=== PATIENT | female | born 1955 | race Hispanic/Latino ===

== ENCOUNTER 2021-02-24 15:43 | Emergency (ER) | payer OTHER ==
[2021-02-24 17:02] LABS: Absolute Lymphocytes (CBC) 2.4 K/uL (0.7-4.9); Basophils % 0.8 % (0-1.3); Hematocrit 40.4 % (36.0-45.0); Lymphocytes % 29.3 % (15.3-44.8); MPV 9.3 fL (7.6-11.3); RBC Red Blood Cell Count 4.56 M/uL (3.86-4.86)
--- NOTE | 2021-02-24 17:06 | RAD REPORT ---
EXAM DESCRIPTION: CT - Head Brain Wo Cont - 02/24/2021 4:55 pm CLINICAL HISTORY: MENTAL STATUS CHANGE COMPARISON: No comparisons TECHNIQUE: All CT scans are performed using dose optimization technique as appropriate and may inclu de automated exposure control or mA/KV adjustment according to patient size. FINDINGS: No intracranial hemorrhage, hydrocephalus or extra-axial fluid collection.No areas of brai n edema or evidence of midline shift. Mild chronic small vessel ischemic changes The paranasal sinuses and mastoids are clear. The calvarium is intact. IMPRESSION: No acute intracranial abnormality.
[2021-02-24 17:08] LABS: Protime INR 1.15
[2021-02-24 17:19] LABS: Urine Blood 1+ (Negative); Urine Glucose Negative (Negative); Urine Protein Negative (Negative); Urine Specific Gravity 1.025 (1.005-1.030); Urine pH 5.5 (5.0-7.0)
[2021-02-24 17:24] LABS: ALT/SGPT 34 U/L (12-78); AST/SGOT 25 U/L (15-37); Albumin 3.5 g/dL (3.4-5.0); Alkaline Phosphatase 102 U/L (45-117); BUN Blood Urea Nitrogen 20 mg/dL (7-18); Bicarbonate 30 mmol/L (21-32); Bilirubin Direct 0.1 mg/dL (0-0.2); Bilirubin Total 0.5 mg/dL (0.2-1.0); Glucose Level 106 mg/dL (74-106); Magnesium 1.8 mg/dL (1.8-2.4); NT PRO-BNP 208 pg/mL (<125); Potassium 3.4 mmol/L (3.5-5.1); Protein, Total 7.5 g/dL (6.4-8.2); Sodium Level 143 mmol/L (136-145); Troponin (Emerg Dept Use Only) < 0.02 ng/mL (0.0-0.045)
--- NOTE | 2021-02-24 17:30 | RAD REPORT ---
EXAM DESCRIPTION: RAD - Chest Single View - 02/24/2021 5:23 pm CLINICAL HISTORY: AMS COMPARISON: No comparisons FINDINGS: Lines: None. Lungs: No evidence of edema or pneumonia. Pleural: No significant pleural effusions or pneumothorax. Cardiac: The heart size is within normal limits. Bones: No acute fractures. Other: IMPRESSION: No acute cardiopulmonary disease.
[2021-02-24 17:43] LABS: Barbiturates NEGATIVE (NEGATIVE); Benzodiazepines POSITIVE (NEGATIVE); Cocaine NEGATIVE (NEGATIVE); METHAMPHETAM NEGATIVE (NEGATIVE); Methadone NEGATIVE (NEGATIVE); Opiates NEGATIVE (NEGATIVE); Phencyclidine NEGATIVE (NEGATIVE); THC Cannibis NEGATIVE (NEGATIVE)
--- NOTE | 2021-02-24 18:52 | ER ---
Nurse's Notes [facility] Name: Vikki Pimentel Age: 65 yrs Sex: Female : 1955 Arrival Date: 02/24/2021 Time: 15:46 Bed 25 Private MD: Adrianna Mariscal Diagnosis: Altered mental status, unspecified Presentation: 02/24 15:51 Chief complaint: Pt's states "she hasn't been making sense since Sunday". Pt aa5 currently A\\T\\O x person, place, and time, denies any complaints. Coronavirus screen: At this time, the client does not indicate any symptoms associated with coronavirus-19. Ebola Screen: No symptoms or risks identified at this time. Initial Sepsis Screen: Does the patient meet any 2 criteria? No. Patient's initial sepsis screen is negative. Does the patient have a suspected source of infection? No. Patient's initial sepsis screen is negative. Risk Assessment: Do you want to hurt yourself or someone else? Patient reports no desire to harm self or others. Onset of symptoms was February 2021. 15:51 Acuity: SHONA 3 aa5 15:51 Method Of Arrival: Ambulatory aa5 Historical: - Allergies: 15:55 No Known Allergies; aa5 - Home Meds: 15:55 alprazolam 0.5 mg oral Tb24 [Active]; amlodipine 5 mg tab once daily [Active]; Restasis aa5 ophthalmic (eye) [Active]; Nitrofurantoin Macrocrystal Oral for as needed [Active]; - PMHx: 15:55 Hypertensive disorder; aa5 - Immunization history:: Client reports receiving the 2nd dose of the Covid vaccine. - Social history:: Smoking status: Patient denies any tobacco usage or history of. Screenin:17 Abuse screen: Denies threats or abuse. Denies injuries from another. Nutritional vg1 screening: No deficits noted. Tuberculosis screening: No symptoms or risk factors identified. Fall Risk No fall in past 12 months (0 pts). No secondary diagnosis (0 pts). IV access (20 points). Ambulatory Aid- None/Bed Rest/Nurse Assist (0 pts). Gait- Normal/Bed Rest/Wheelchair (0 pts) Mental Status- Oriented to own ability (0 pts). Total Sanchez Fall Scale indicates No Risk (0-24 pts). Assessment: 16:14 Reassessment: Pt niece states for about a week pt has been having auditory and visual vg1 hallucinations. States pt has been having 'anxiety' episodes and 'has not seen her act like that in the past'. General: Appears in no apparent distress. comfortable, Behavior is calm, cooperative. Pain: Denies pain. Neuro: Level of Consciousness is awake, alert, obeys commands, Oriented to person, place, time, situation. Cardiovascular: Patient's skin is warm and dry. Respiratory: Airway is patent Respiratory effort is even, unlabored, Denies cough. GI: Patient currently denies diarrhea, nausea, vomiting. : Denies burning with urination, pain urinary frequency. EENT: No signs and/or symptoms were reported regarding the EENT system. Derm: Skin is intact, Skin is pink, warm \\T\\ dry. Musculoskeletal: Circulation, motion, and sensation intact. 17:22 Reassessment: Patient appears in no apparent distress at this time. No changes from vg1 previously documented assessment. Patient and/or family updated on plan of care and expected duration. Pain level reassessed. Patient is alert, oriented x 3, equal unlabored respirations, skin warm/dry/pink. 18:19 Reassessment: Patient appears in no apparent distress at this time. No changes from vg1 previously documented assessment. Patient and/or family updated on plan of care and expected duration. Pain level reassessed. Patient is alert, oriented x 3, equal unlabored respirations, skin warm/dry/pink. 19:31 Reassessment: Patient appears in no apparent distress at this time. No changes from vg1 previously documented assessment. Patient and/or family updated on plan of care and expected duration. Pain level reassessed. Patient is alert, oriented x 3, equal unlabored respirations, skin warm/dry/pink. 21:27 Reassessment: Patient appears in no apparent distress at this time. No changes from vg1 previously documented assessment. Patient and/or family updated on plan of care and expected duration. Pain level reassessed. Patient is alert, oriented x 3, equal unlabored respirations, skin warm/dry/pink. Patient denies pain at this time. Vital Signs: 15:51 BP 148 / 83; Pulse 82; Resp 20 S; Temp 98.0(TE); Pulse Ox 97% on R/A; aa5 15:59 Weight 82.1 kg (M); aa5 16:17 BP 159 / 81; Pulse 84; Resp 18; Pulse Ox 99% ; vg1 17:22 BP 139 / 68; Pulse 77; Resp 20; Pulse Ox 98% ; vg1 18:00 BP 129 / 80; Pulse 74; Resp 20; Pulse Ox 100% ; vg1 18:30 BP 144 / 81; Pulse 71; Resp 16; Pulse Ox 99% ; vg1 19:00 BP 137 / 76; Pulse 68; Resp 20; Pulse Ox 98% ; vg1 20:00 BP 138 / 78; Pulse 70; Resp 15; Pulse Ox 98% ; vg1 21:00 BP 149 / 77; Pulse 71; Resp 20; Pulse Ox 99% ; vg1 ED Course: 15:46 Patient arrived in ED. am2 15:46 Adrianna Mariscal MD is Private Physician. am2 15:47 Arm band placed on. aa5 15:55 Triage completed. aa5 15:59 Floyd Nam PA is PHCP. cp 15:59 Stan Hall MD is Attending Physician. cp 16:04 Amy Nuñez, ELISEO is Primary Nurse. vg1 16:17 Patient has correct armband on for positive identification. Bed in low position. Call vg1 light in reach. Side rails up X 1. Adult w/ patient. 16:35 Inserted saline lock: 20 gauge in left antecubital area, using aseptic technique. Blood vg1 collected. 16:35 Initial lab(s) drawn, by me, sent to lab. First set of blood cultures drawn by me. vg1 16:49 COVID swab sent to lab. vg1 16:50 Second set of blood cultures drawn by me. vg1 16:55 CT Head Brain wo Cont In Process Unspecified. EDMS 17:10 Straight cath inserted, using sterile technique, 16 Fr. Specimen obtained. Returned vg1 steven urine. Patient tolerated well. 17:23 XRAY Chest (1 view) In Process Unspecified. EDMS 19:22 Initiated transfer at [facility] with Juany Boston. Stated she would put in a bed tt3 request and call back with their physician. 19:46 Juany called back and stated that there wasn't a bed available, but could take the tt3 pt in the ER. Call was connected to JENNIFER Rodriguez, pt provider for consultation. 19:59 Juany gave admin approval. The pt is going to [facility]. The accepting tt3 physician is Dr. Cordova. Nurse to call report to . Face sheet, MOT, and covid results faxed to per Juany's request. 20:41 No provider procedures requiring assistance completed. Patient transferred, IV remains vg1 in place. Administered Medications: No medications were administered Outcome: 18:51 ER care complete, transfer ordered by MD. quinteros 20:41 Transferred by ground EMS vg1 20:41 Condition: stable 20:41 Instructed on the need for transfer. 21:28 Patient left the ED. vg1 Signatures: Dispatcher [employer] EDMS Sandra Rosenbaum, RN RN aa5 Floyd Nam PA PA cp Moreno, Amanda am2 Garcia, Victoria, RN RN vg1 Stephen Hobbs tt3
--- NOTE | 2021-02-24 18:52 | EDPHYS ---
Physician Documentation [facility] Name: Vikki Pimentel Age: 65 yrs Sex: Female : 1955 Arrival Date: 02/24/2021 Time: 15:46 Bed 25 Private MD: Adrianna Mariscal ED Physician Stan Hall HPI: 02/24 16:24 This 65 yrs old Female presents to ER via Ambulatory with complaints of cp Altered Mental Status, High Blood Pressure. 16:24 The patient presents with decreased mental status. Onset: The symptoms/episode cp began/occurred 1 week(s) ago. Possible causes: unknown. Associated signs and symptoms: Pertinent positives: elevated blood pressure. 16:25 Patient's baseline: Neuro: orientated to person, time, Motor: no deficits, Ambulation: cp walks without assistance, Speech: normal. Historical: - Allergies: 15:55 No Known Allergies; aa5 - Home Meds: 15:55 alprazolam 0.5 mg oral Tb24 [Active]; amlodipine 5 mg tab once daily [Active]; Restasis aa5 ophthalmic (eye) [Active]; Nitrofurantoin Macrocrystal Oral for as needed [Active]; - PMHx: 15:55 Hypertensive disorder; aa5 - Immunization history:: Client reports receiving the 2nd dose of the Covid vaccine. - Social history:: Smoking status: Patient denies any tobacco usage or history of. ROS: 16:30 Constitutional: Negative for body aches, chills, fever, poor PO intake. cp 16:30 Eyes: Negative for injury, pain, redness, and discharge. cp 16:30 ENT: Negative for ear pain, sore throat, difficulty swallowing, difficulty handling secretions. 16:30 Cardiovascular: Negative for chest pain, edema. 16:30 Respiratory: Negative for cough, shortness of breath, wheezing. 16:30 Abdomen/GI: Negative for abdominal pain, vomiting, diarrhea, constipation. 16:30 : Negative for urinary symptoms. 16:30 Skin: Negative for cellulitis, rash. 16:30 Neuro: Positive for altered mental status, Negative for headache, weakness. Exam: 16:33 Constitutional: The patient appears in no acute distress, alert, awake, cp non-diaphoretic, non-toxic, well developed, well nourished. 16:33 Head/Face: Normocephalic, atraumatic. cp 16:33 Eyes: Periorbital structures: appear normal, Pupils: equal, round, and reactive to light and accomodation, Extraocular movements: intact throughout, Conjunctiva: normal, no exudate, no injection, Sclera: no appreciated abnormality, Lids and lashes: appear normal, bilaterally. 16:33 ENT: External ear(s): are unremarkable, Nose: is normal, Posterior pharynx: Airway: no evidence of obstruction, patent. 16:33 Neck: ROM/movement: is normal, is supple, without pain, no range of motions limitations, no meningismus. 16:33 Chest/axilla: Inspection: normal. 16:33 Cardiovascular: Rate: normal, Rhythm: regular, Edema: is not appreciated, JVD: is not appreciated. 16:33 Respiratory: the patient does not display signs of respiratory distress, Respirations: normal, no use of accessory muscles, no retractions, labored breathing, is not present, Breath sounds: are clear throughout, no decreased breath sounds, no stridor, no wheezing. 16:33 Abdomen/GI: Exam negative for discomfort, distension, guarding, Inspection: abdomen appears normal. 16:33 Neuro: Orientation: to person, time, situation, Mentation: able to follow commands, Motor: moves all fours, strength is normal, Sensation: is normal. 17:20 ECG was reviewed by the Attending Physician. cp Vital Signs: 15:51 BP 148 / 83; Pulse 82; Resp 20 S; Temp 98.0(TE); Pulse Ox 97% on R/A; aa5 15:59 Weight 82.1 kg (M); aa5 16:17 BP 159 / 81; Pulse 84; Resp 18; Pulse Ox 99% ; vg1 17:22 BP 139 / 68; Pulse 77; Resp 20; Pulse Ox 98% ; vg1 18:00 BP 129 / 80; Pulse 74; Resp 20; Pulse Ox 100% ; vg1 18:30 BP 144 / 81; Pulse 71; Resp 16; Pulse Ox 99% ; vg1 19:00 BP 137 / 76; Pulse 68; Resp 20; Pulse Ox 98% ; vg1 20:00 BP 138 / 78; Pulse 70; Resp 15; Pulse Ox 98% ; vg1 21:00 BP 149 / 77; Pulse 71; Resp 20; Pulse Ox 99% ; vg1 MDM: 16:02 Patient medically screened. cp 16:35 Differential Diagnosis: CVA, electrolyte abnormality, alcohol intoxication, cp hypoglycemia, intracranial bleed, pneumonia, sepsis, TIA, UTI, volume depletion. 18:00 Data reviewed: vital signs, nurses notes, lab test result(s), EKG, radiologic studies, cp CT scan, plain films. 18:00 Test interpretation: by ED physician or midlevel provider: ECG, plain radiologic cp studies. Counseling: I had a detailed discussion with the patient and/or guardian regarding: the historical points, exam findings, and any diagnostic results supporting the discharge/admit diagnosis, lab results, radiology results. 20:00 Physician consultation: was contacted at 19:58, regarding regarding transfer, [facility] aldair De La Garza for admission and observation per request from family of patient. Accepting physician will be DR Karthik Cordova. 02/24 16:20 Order name: Basic Metabolic Panel 02/24 16:20 Order name: CBC with Diff 02/24 16:20 Order name: LFT's; Complete Time: 17:44 02/24 17:44 Interpretation: Normal except: GLOB 4.0; A/G 0.9. 02/24 16:20 Order name: Magnesium; Complete Time: 17:44 02/24 17:45 Interpretation: MG 1.8; Reviewed. 02/24 16:20 Order name: NT PRO-BNP; Complete Time: 17:44 02/24 16:20 Order name: PT-INR; Complete Time: 17:44 02/24 16:20 Order name: Troponin (emerg Dept Use Only); Complete Time: 17:44 02/24 16:20 Order name: Procalcitonin; Complete Time: 19:57 02/24 16:20 Order name: Lactate; Complete Time: 17:44 02/24 17:46 Interpretation: Within normal limits: LAC 1.0. 02/24 16:20 Order name: Blood Culture Adult (2) 02/24 16:20 Order name: UDS; Complete Time: 17:44 02/24 17:44 Interpretation: Normal except: BZO POSITIVE. 02/24 16:20 Order name: ETOH Level; Complete Time: 17:44 02/24 16:20 Order name: Basic Metabolic Panel; Complete Time: 17:44 EDMS 02/24 17:44 Interpretation: Normal except: K 3.4; BUN 20; GFR 80. 02/24 16:20 Order name: CT Head Brain wo Cont; Complete Time: 17:44 02/24 17:45 Interpretation: Report reviewed. 02/24 16:20 Order name: XRAY Chest (1 view); Complete Time: 17:44 02/24 17:45 Interpretation: Report reviewed. 02/24 16:20 Order name: EKG; Complete Time: 16:21 cp 02/24 16:20 Order name: Cardiac monitoring; Complete Time: 17:17 02/24 16:20 Order name: EKG - Nurse/Tech; Complete Time: 17:17 02/24 16:20 Order name: IV Saline Lock; Complete Time: 16:48 02/24 16:20 Order name: Labs collected and sent; Complete Time: 16:48 02/24 16:20 Order name: O2 Per Protocol; Complete Time: 16:48 02/24 16:20 Order name: O2 Sat Monitoring; Complete Time: 16:48 02/24 16:20 Order name: Cath; Complete Time: 17:17 02/24 16:20 Order name: CBC with Automated Diff; Complete Time: 17:44 EDMS 02/24 17:46 Interpretation: Within normal limits. 02/24 17:19 Order name: Urine Dipstick-Ancillary; Complete Time: 17:44 EDMS 02/24 17:45 Interpretation: Normal except: UBLD 1+. 02/24 17:40 Order name: SARS-COV-2 RT PCR; Complete Time: 19:57 EDMS EC:20 Rate is 76 beats/min. Rhythm is regular. [place] interval is normal. QRS interval is normal. cp QT interval is normal. T waves are Inverted in lead aVR. Interpreted by me. Reviewed by me. Administered Medications: No medications were administered Disposition: 02/25 19:05 Co-signature as Attending Physician, Stan Hall MD I agree with the assessment and rn plan of care. Attestation: The patient's history, exam findings, diagnostics, and a summary of any interventions or procedures was reviewed in detail with Floyd RODRIGUEZ. Disposition Summary: 02/24/21 18:51 Transfer Ordered Transfer Location: Other Acute Care Facility cp Reason: Higher level of care cp Condition: Stable cp Problem: new cp Symptoms: are unchanged cp Accepting Physician: DR Karthik Cordova(02/24/21 21:28) vg1 Diagnosis - Altered mental status, unspecified cp Forms: - Medication Reconciliation Form cp - SBAR form cp Signatures: Dispatcher [employer] EDMS Stan Hall MD MD rn Sandra Rosenbaum RN RN aa5 Floyd Nam PA PA Amy Coffey RN RN vg1 Corrections: (The following items were deleted from the chart) 02/24 17:40 16:21 CORONAVIRUS+MR.LAB.BRZ ordered. EDKS EDMS 19:59 18:51 Doctor cp cp 21:28 19:59 DR Karthik Cordova cp vg1
[2021-02-24 21:47] VITALS: TEMP 98
[2021-02-24 21:56] VITALS: BP 149/77; O2SAT 99
--- NOTE | 2021-02-28 18:35 | EKG ---
Test Date: 2021-02-24 Test Time: 17:14:17 Traffic Investigator: FRANCIE MEASUREMENT RESULTS: Intervals: Rate: 76 NC: 162 QRSD: 82 QT: 376 QTc: 423 Superior: P: 57 NC: 162 QRS: 27 T: 44 INTERPRETIVE STATEMENTS: Normal sinus rhythm Possible Left atrial enlargement Borderline ECG No previous ECG available for comparison Electronically Signed On 02-28-21 18:24:46 [employer]LET[employer] WORK[employer] by Taras Pham
--- OUTSIDE RECORDS SUMMARY | 2021-03-05 11:43 | XMS REPORT | Continuity of Care Document ---
:1955 Author Organization [facility] t Address [address] [place] [address] Care Team Providers Name Role Phone Darek Maxwell Attending Clinician Unavailable Darek Maxwell Admitting Clinician Unavailable Adrianna Mariscal Admitting Clinician Unavailable Payers Payer Name Policy Type Policy Number Effective Date Expiration Date S ource Problems This patient has no known problems. Allergies, Adverse Reactions, Alerts Allergy Allergy Status Severity Reaction(s) Onset Inactive Treating Comm ents Source Name Type Date Date Clinician No Known DA Active U 2020-04 [facility] Allergie 04-26 Clear s 00:00: [place] 00 [facility] Medications Ordered Filled Start Stop Current Ordering Indication Dosage Frequency Signature Comments Components Source Medication Medication Date Date Medication? Clinician (SIG) Name Name Amlodipine Amlodipine Yes Adrianna Mariscal [address] [facility] Besylate Besylate 8-19 [facility] Procedures This patient has no known procedures. Encounters Start End Encounter Admission Attending Care Care Encounter Source Date/Time Date/Time Type Type Clinicians Facility Department ID 2021-02-24 2021-02-25 Inpatient EM LAKSHMI Maxwell INTE.02 [id number] [facility] 22:23:00 22:00:00 Darek [id number] [facility] 2021-02-24 2021-02-25 Inpatient EM LAKSHMI Maxwell INTE.02 [id number] [facility] 22:23:00 22:00:00 Nkoli 13 [facility] 2021-02-25 2021-02-25 Outpatient JONATHAN Maxwell [id number] [facility] 08:39:[facility] 08:39:00 Nkoli [id number] [facility] 2021-02-03 2021-02-03 Outpatient [facility] [id number] [facility] 2020-04-08 2020-04-08 Outpatient [facility] [id number] [facility] 2020-03-30 2020-03-30 Outpatient [facility] [id number] [facility] 2019-12-18 2019-12-18 [facility] [id number] [facility] 20:48:00 20:48:00 [facility] [employer] [facility] Medicine l Medicine Outpati ent Clinics 2019-12-17 2019-12-17 [facility] [id number] [facility] 08[facility]18:00 08:18:00 t [employer] [employer] [facility] Medicine l Medicine Outpati ent Clinics 2019-12-10 2019-12-10 [facility] [id number] 09:40:00 09:40:00 t [employer] [facility] [employer] [facility] Medicine l Medicine Outpati ent Clinics 2019-12-10 2019-12-10 [facility] [id number] 09:00:00 09:00:00 t [facility] [employer] [facility] Medicine l Medicine Outpati ent Clinics 2019-11-04 2019-11-04 [facility] [id number] [address] 14:23:00 14:23:00 t [facility] [employer] [facility] Medicine l Medicine Outpati ent Clinics 2019-11-04 2019-11-04 [facility] [id number] 13:53:00 13:53:00 [facility] [address] [facility] Outpati ent Clinics 2019-10-28 2019-10-28 [facility] [id number] 10:00:00 10:00:[address] [facility] - Drive [facility] Results Test Description Test Time Test Comments Results Result Sourc e Comments - MRI BRAIN W WO 2021-02-25 [facility]:50:[facility] 1955 Sex: F FAX: Darek Maxwell MD Camps: PM St: ADM FAX: Han Paredes DO [phone] FAX: Adrianna Allen DO [phone] Name: SURJIT TANNER [facility] : 1955 Age/S: 65/F [address] Unit #: [id number] Loc: [place] [address] Phys: Han Paredes DO Acct: [id number] Dis Date: Status: ADM IN PHONE #: [phone] Exam Date: 02/25/2021 1154 FAX #: Reason: Concern for CVA patient has AMS and hallucinati EXAMS: CPT: [id number] MRI BRAIN W WO CONT 21285 Dictation location: U19. MRI BRAIN WITHOUT AND WITH CONTRAST HISTORY: Concern for CVA patient has AMS and hallucinations TECHNIQUE: Multiplanar and multiple pulse sequences were obtained throughout the brain without and with gadolinium (17 mL Dotarem). COMPARISON: None FINDINGS: Limited exam from dental hardware limiting assessment of the frontal lobes. Diffusion-weighted imaging shows no definite evidence of acute ischemia. Pituitary and posterior fossa are unremarkable. Mild to moderate T2/FLAIR signal hyperintensities in noted within the periventricular and deep white matter. No hemorrhage, mass, mass effect, hydrocephalus, midline shift or extra-axial fluid collection. No abnormal intracranial enhancement. Minimal thickening of the ethmoid sinuses. The mastoid air cells are clear. IMPRESSION: No evidence of acute ischemia. Mild to moderate white matter disease may relate to chronic microvascular at 1350 Reported and signed by: iWlber Mercado M.D. CC: Darek Maxwell MD; Han Paredes DO; Adrianna Mariscal DO Technologist: Kevin Benton, RT(R)(MR) Transcribed Date/Time/By: 02/25/2021 (3401) :[email or web address] Orig Print D/T: S: 02/25/2021 (7631) PAGE 1 Signed Report DRUGS OF ABUSE SCREEN UR 2021-02-25 11:50:00 Test Item Value Reference Range Interpretation Comme nts URN COCAINE (test code = NEGATIVE SCcutoff See_Comment UNCONFIRMED SCREENING COCAURN) RESULTS SHOULD NOT BE USED FORNON-MEDICAL PURPOSES. [Automated mess age] The system which [employer] nerated this result transmit albert reference range : <300 NG/ML. The refe rence range was not used to interpret this result as normal/abnormal . URN CANNABINOIDS (test NEGATIVE SCcutoff See_Comment UNCONFIRMED SCREENING code = CANNABURN) RESULTS SH OULD NOT BE USED FORNON-MEDICAL PURPOSES. [Automated mess age] The system which [employer] nerated this result transmit albert reference range : <50 NG/ML. The reference r aditi was not used to interpr et this result as ayleen l/abnormal. URN AMPHETAMINE (test code NEGATIVE SCcutoff See_Comment UNCONFIRMED SCREENING = AMPHETURN) RESULTS SHOULD NOT BE USED FORNON-MEDICAL PURPOSES. [Automated mess age] The system which ge nerated this result transmit albert reference range : <1000 NG/ML. The refe rence range was not used to interpret this result as normal/abnormal . URN BARBITURATE (test code NEGATIVE SCcutoff See_Comment UNCONFIRMED SCREENING = BARBITURN) RESULTS SHOULD NOT BE USED FORNON-MEDICAL PURPOSES. [Automated mess age] The system which ge nerated this result transmit albert reference range : <200 NG/ML. The refe rence range was not used to interpret this result as normal/abnormal . URN BENZODIAZEPINE (test POSITIVE SCcutoff See_Comment A UNCONFIRMED SCREENING code = BENZOURN) RESULTS ASHLY ULD NOT BE USED FORNON-MEDICAL PURPOSES. [Automated mess age] The system which ge nerated this result transmit albert reference range : <200 NG/ML. The refe rence range was not used to interpret this result as normal/abnormal . URN OPIATES (test code = NEGATIVE SCcutoff See_Comment [Automated message] The OPIATURN) system which ge nerated this result transmit albert reference range : <300 NG/ML. The refe rence range was not used to interpret this result as normal/abnormal . URN PHENCYCLIDINE (PCP) NEGATIVE SCcutoff See_Comment UNCONFIRMED SCREENING (test code = PHENCURN) RESUL TS SHOULD NOT BE USED FORNON-MEDICAL PURPOSES. [Automated mess age] The system which ge nerated this result transmit albert reference range : <25 NG/ML. The reference r aditi was not used to interpr et this result as ayleen l/abnormal. URN METHADONE (test code = NEGATIVE SCcutoff See_Comment UNCONFIRMED SCREENING METHAURN) RESULTS SHOULD NOT BE USED FORNON-MEDICAL PURPOSES. [Automated mess age] The system which ge nerated this result transmit albert reference range : <300 NG/ML. The refe rence range was not used to interpret this result as normal/abnormal . COMPREHENSIVE METABOLIC [id number] 11:50:00 Test Item Value Reference Range Interpretation Comments SODIUM (test code = NA) 138 mmol/L 134-147 N POTASSIUM (test code = 3.2 mmol/L 3.4-5.0 L K) CHLORIDE (test code = 100 mmol/L 100-108 N CL) CARBON DIOXIDE (test 31 mmol/L 21-32 N code = CO2) ANION GAP (test code = 7.0 GAP calc 4.0-15.0 N GAP) GLUCOSE (test code = 109 MG/DL 70-110 N GLU) BLOOD UREA NITROGEN 9 MG/DL 7-18 N (test code = BUN) GLOMERULAR FILTRATION >=60 max estimate >60 RATE (test code = GFR) estGFR CREATININE (test code = 0.6 MG/DL 0.6-1.0 N CREAT) TOTAL PROTEIN (test code 8.1 G/DL 6.4-8.2 N = PROT) ALBUMIN (test code = 3.9 G/DL 3.4-5.0 N ALB) GLOBULIN (test code = 4.2 GM/dL GLOB) ALBUMIN/GLOBULIN RATIO 0.9 RATIO 1.2-2.2 L (test code = A/G) CALCIUM (test code = CA) 9.7 MG/DL 8.5-10.1 N BILIRUBIN TOTAL (test 0.60 MG/DL 0.2-1.2 N code = BILT) SGOT/AST (test code = 29 Unit/L 15-37 N AST) SGPT/ALT (test code = 36 Unit/L 12-78 N ALT) ALKALINE PHOSPHATASE 105 Unit/L 45-117 N TOTAL (test code = ALKP) CBC W/AUTO [id number] 11:38:00 Test Item Value Reference Range Interpretation Comments WHITE BLOOD CELL (test code = 9.3 K/mm3 3.5-11.0 N WBC) RED BLOOD CELL (test code = 4.86 M/mm3 4.70-6.10 N RBC) HEMOGLOBIN (test code = HGB) 14.3 G/DL 10.4-14.9 N HEMATOCRIT (test code = HCT) 43.4 % 31.5-44.1 N MEAN CELL VOLUME (test code = 89.3 Fl 84.5-98.6 N MCV) MEAN CELL HGB (test code = MCH) 29.4 pg 27.0-34.2 N MEAN CELL HGB CONCETRATION 32.9 G/DL 31.5-34.0 N (test code = MCHC) RED CELL DISTRIBUTION WIDTH 12.0 SD 11.5-14.5 N (test code = RDW) PLATELET COUNT (test code = 230 K/mm3 150-450 N PLT) MEAN PLATELET VOLUME (test code 10.80 fL 7.0-10.5 H = MPV) NEUTROPHIL % (test code = NT%) 65.3 % 40-76 N IMMATURE GRANULOCYTE % (test 0.3 % 0.0-5.0 N code = IG%) LYMPHOCYTE % (test code = LY%) 24.4 % 20.5-51.1 N MONOCYTE % (test code = MO%) 6.6 % 1.7-9.3 N EOSINOPHIL % (test code = EO%) 2.5 % 0.0-6.0 N BASOPHIL % (test code = BA%) 0.9 % 0.0-2.0 N NUCLEATED RBC % (test code = 0.0 /100WBC% 0.0-1.0 N NRBC%) NEUTROPHIL # (test code = NT#) 6.1 K/mm3 1.8-7.6 N IMMATURE GRANULOCYTE # (test 0.03 x10 3/uL 0.00-0.03 N code = IG#) LYMPHOCYTE # (test code = LY#) 2.3 K/mm3 0.6-3.2 N MONOCYTE # (test code = MO#) 0.6 K/mm3 0.3-1.1 N EOSINOPHIL # (test code = EO#) 0.2 K/mm3 0.0-0.4 N BASOPHIL # (test code = BA#) 0.1 K/mm3 0.0-0.1 N NUCLEATED RBC # (test code = 0.0 K/mm3 0.0-0.1 N NRBC#) MANUAL DIFF REQUIRED (test code NO DIFF/SCN CRITERIA = MDIFF) [id number] 04:17:00 Test Item Value Reference Range Interpretation Comments TROPONIN-I (test < 0.015 NG/ML 0.000-0.045 N Negative: </= 0.045 code = TROPI) Positive: >/= 0.046 Correlation wit h serial results, other cardiac markers, and cl inical findings is nec essary to determine the c linical significance of this result. Quantit ative results using d ifferent methodologies s hould not be compared to one another as nume rical results may geri yby method. Completed by Nursing: [id number] 01:21:00 Test Item Value Reference Range Interpretation Comments TROPONIN-I (test < 0.015 NG/ML 0.000-0.045 N Negative: </= 0.045 code = TROPI) Positive: >/= 0.046 Correlation wit h serial results, other cardiac markers, and cl inical findings is nec essary to determine the c linical significance of this result. Quantit ative results using d ifferent methodologies s hould not be compared to one another as nume rical results may geri yby method. Completed by Nursing: NO
== END 2021-02-24 21:28 ==
LOC: ER 15:43
DX: R41.82 Altered mental status, unspecified (principal); Z20.822 Contact with and (suspected) exposure to COVID-19; I10 Essential (primary) hypertension
CPT/HCPCS: 93005; 87040 ×2; 85025; 80048; 36415; 80320; 83735; 85610; 80076; 83605; 81003; 84484; 84145; 83880; 80307; 70450; 71045; 51702; 99285; U0003